=== PATIENT | female | born 1960 | race Caucasian/White ===

== ENCOUNTER 2024-07-04 11:10 | Emergency (ER) | payer OTHER, SELFPAY ==
[2024-07-04 11:15] VITALS: BP 160/84
[2024-07-04 11:51] LABS: % Basophils 0.4 % (0-2); % Eosinophils 0.6 % (0-6); % Immature Granulocytes 0.4 % (0-0.5); % Lymphocytes 8.4 % (20.5-51.1); % Monocytes 11.5 % (1.7-9.3); % Neutrophils 78.7 % (42.2-75.2); Absolute Lymphocytes 0.4 10^3/uL (1.2-3.4); Absolute Monocytes 0.6 10^3/uL (0.1-0.6); Absolute Neutrophils 3.8 10^3/uL (1.4-6.5); Hemoglobin 13.5 g/dL (12.0-16.0); Mean Corp Hgb Conc. 32.9 g/dL (33.0-37.0); Mean Corpuscular Hgb 28.1 pg (27.0-31.0); Mean Corpuscular Volume 85.4 fL (81.0-99.0); Mean Platelet Volume 8.6 fL (7.4-10.4); Nucleated Red Blood Cells % 0 %; Platelet Count 150 10^3/uL (130-400); White Blood Cell Count 4.9 10^3/uL (4.8-10.8)
[2024-07-04 12:00] LABS: COVID-19 Antigen Negative (Negative)
[2024-07-04 12:07] LABS: ALT (SGPT) 17 U/L (0-35); AST (SGOT) 22 U/L (14-36); Albumin 4.1 g/dl (3.5-5.0); Alkaline Phosphatase 66 U/L (38-126); Blood Urea Nitrogen 16 mg/dl (7-17); Calcium 8.9 mg/dl (8.4-10.2); Carbon Dioxide 28 mmol/L (22-30); Chloride 98 mmol/L (98-107); Glucose 103 mg/dl (70-99); Potassium 4.4 mmol/L (3.5-5.1); Sodium 132 mmol/L (135-145); Total Bilirubin 0.7 mg/dl (0.2-1.3); Total Protein 7.2 g/dl (6.3-8.2); eGFR > 60.00
[2024-07-04 13:20] VITALS: BP 149/92
--- NOTE | 2024-07-04 13:47 | ED.GENMED ---
History of Present Illness
General
Chief Complaint: Breathing Problem
Source: patient
Exam Limitations: none
Time Seen by Provider: 07/04/24 13:38
Nursing documentation reviewed up to this point in time: agreed with
History of Present Illness
History of Present Illness:
64-year-old female with history as noted presents to the ER for evaluation of cough. Patient reports symptoms have been ongoing for the past 2 or 3 days. She reports hacking nonproductive cough. She says she has had some mild associated shortness
of breath. She says that she has occasional pressure in her chest from coughing. She denies any fever or chills. She has not had any nausea, vomiting, diarrhea or abdominal discomfort. She denies any swelling or pain in the legs. She denies any
other complaints. She said she had similar symptoms in the past from pneumonia.
Past History
Past History
ED Past Medical History: None
ED Past Surgical History: Gynecological (Hysterectomy)
Social History
Tobacco: Non-smoker
Alcohol: None
Drug: None
Living: with family
Employment: Employed
Review of Systems
Review of Systems
All Other Systems: ROS reviewed and negative except as documented in HPI and ROS
Constitutional: Denies fever or chills
EENT: Denies sore throat or runny nose
Respiratory: Reports cough and trouble breathing
Cardiac: Reports chest pain; Denies palpitations
ABD/GI: Denies abdominal pain, nausea, vomiting or diarrhea
: Denies flank pain
Musculoskeletal: Denies edema, neck pain or back pain
Neurological: Denies headache
Phy Exam
Physical Exam
Physical Exam:
General: Awake, alert, oriented x3; no acute distress
Head: Normocephalic, atraumatic
Eyes: Conjunctiva normal, sclera anicteric
Throat: Airway intact, handling secretions, moist mucous membranes
Neck: Trachea midline, no JVD
Lungs: Frequent hacking cough with bilateral scattered wheezing at end expiration; no increased work of breathing, normal pulse ox, normal respiratory rate
Heart: Regular rate and rhythm, no murmurs, gallops, or rubs
Abd: Soft, non distended, nontender
Neuro: No gross deficits
Extremities: Trace edema in the legs which patient says is chronic; extremities are warm and well-perfused
Scores
Heart Failure Risk
Heart Failure Risk Score: Not Applicable
Heart Score for Chest Pain Patients
STEMI patient?: Not applicable
Withdrawal Assessment of Alcohol
Withdrawal Assessment Completed?: Not applicable
Course
Orders/Labs/Results
Orders:
Orders
07/04/24 11:18
Electrocardiogram (*1) Urgent
Reason for Study: Shortness of Breath
EKG- Treatment ONCE
CXR2 [CR Chest - 2 Views ] Urgent
Comment:
Reason For Exam: sob
07/04/24 11:34
COVID-19 Antigen Urgent
Source: Nasal Swab
Complete Blood Count/With Diff Urgent
Comprehensive Metabolic Panel Urgent
Influenza A+B Rapid Molecular Urgent
SAMI Source: Nasal Swab
Specimen Description:
07/04/24 13:46
Azithromycin [Zithromax] 500 mg PO NOW STA
Ipratropium/Albuterol Sulfate [Duoneb] 3 ml INH R NOW STA
Prednisone [Deltasone] 50 mg PO NOW STA
07/04/24 13:58
Troponin I Urgent
Abnormal Lab Results
07/04/24
11:34
MCHC 32.9 L g/dL
(33.0-37.0)
Absolute Lymphs (auto) 0.4 L 10^3/uL
(1.2-3.4)
Neutrophils % 78.7 H %
(42.2-75.2)
Lymphocytes % 8.4 L %
(20.5-51.1)
Monocytes % 11.5 H %
(1.7-9.3)
Sodium 132 L mmol/L
(135-145)
Glucose 103 H mg/dl
(70-99)
07/04/24 11:34
07/04/24 11:34
Vital Signs
Initial and Last Documented VS:
Initial Vital Signs
Temp Pulse Resp BP Pulse Ox
36.8 C 90 16 160/84 98
07/04/24 11:15 07/04/24 11:15 07/04/24 11:15 07/04/24 11:15 07/04/24 11:15
Last Documented Vital Signs
Temp Pulse Resp BP Pulse Ox
36.8 C 83 16 149/92 99
07/04/24 11:15 07/04/24 13:20 07/04/24 13:20 07/04/24 13:20 07/04/24 13:20
MDM/Problems Addressed
Differential Diagnosis Includes:
Bronchitis, pneumonia, URI
MDM/Problems Addressed:
64-year-old female presents to the emergency room for evaluation of hacking cough associate with some mild shortness of breath and chest pressure with coughing. Hypertensive otherwise normal vitals. Physical exam as above. She had labs sent in
triage including a CBC and a CMP which showed no clinically significant abnormalities. COVID and flu were negative. Chest x-ray reviewed by me shows no acute pneumonia. EKG shows sinus rhythm no acute ischemic changes. Will add troponin given
reported chest pressure although very low suspicion that this is cardiac chest pain suspect all related to coughing. Her clinical picture is consistent with acute bronchitis. Plan to treat with DuoNeb, steroid; cover with azithromycin in case of
occult pneumonia given similar symptoms in the past with pneumonia. Reassess after the above.
Patient's troponin is undetectable. On reassessment she feels only mild improvement with treatment here she still has some wheezing but only mild. Her work of breathing, respiratory rate and pulse ox are acceptable. I do long discussion with the
patient that she does appear stable for a trial of outpatient treatment for her acute bronchitis with steroids and albuterol. I did offer her admission if she feels uncomfortable with a trial of outpatient treatment but she is feels comfortable
trialing treatment at home to start. She will return if symptoms are getting worse. Using shared decision making we will discharge to follow-up as an outpatient.
*Radiology
Radiology exam reviewed: preliminary read by ED provider and radiology read reviewed
*Pulse Oximetry
Patient hypoxic: no
*EKG
Interpreted by ED Provider?: Yes
Heart Rate: 78
Rate: normal
Rhythm: sinus
Chambers: normal axis
Interval: normal interval
QRS Pattern: normal QRS
Ischemia: other (Cannot rule out age-indeterminate anterior infarct but unchanged from prior)
*Critical Care Note
Total Time (30-74mins, 75-104mins- exclusive of procedures): Not Applicable
Data Reviewed
Review of Other/Old Records Reveals: Labs and Records
Source: patient and records
Patient Management
Escalation/DeEscalation of care consider admission/obs:
Considered admission, using shared decision making�discharge as above
ED Attending Note
-
Portions of this chart may have been created with voice recognition software.� Occasional wrong word or��sound alike� substitutions may have occurred due to the inherent limitations of voice recognition software.
Discharge Plan
Departure
Patient Disposition: Home (Routine Discharge)
Date of Disposition: 07/04/24
Time of Disposition: 15:29
Patient with high blood pressure during this ER visit?: Yes
Discharge Problem:
Acute bronchitis
Instructions: Acute Bronchitis, Adult (DC)
Prescriptions:
New
prednisone 10 mg Tablet
See Rx Instructions .ROUTE .COMPLEX Qty: 30 0RF
Rx Instructions:
Take By Mouth:
40 mg daily x3 days, 30 mg daily x3 days,
20 mg daily x3 days, 10 mg daily x3 days.
albuterol sulfate 2.5 mg /3 mL (0.083 %) solution for nebulization
2.5 mg inhalation Q4H PRN (Reason: shortness of breath or wheezing) Qty: 75 0RF
azithromycin 250 mg tablet
250 mg PO DAILY 4 Days Qty: 4 0RF
No Action
sertraline 100 MG tablet
150 mg PO HS
famotidine 20 MG tablet
20 mg PO BID 7 Days Qty: 14 0RF
ascorbic acid (vitamin C) [Vitamin C] 500 MG tablet
1,000 mg PO BID 7 Days Qty: 28 0RF
zinc sulfate 220 MG capsule
220 mg PO DAILY 7 Days Qty: 7 0RF
melatonin 5 MG tablet
5 mg PO HS 7 Days Qty: 7 0RF
cholecalciferol (vitamin D3) 2,000 UNITS tablet
2,000 units PO DAILY 7 Days Qty: 7 0RF
aspirin [Adult Aspirin Regimen] 81 MG tablet,delayed release (DR/EC)
81 mg PO DAILY 30 Days Qty: 30 0RF
Referrals:
Meaghan Colón CRNP [Family Provider] - Follow up in 2-3 days
Activity Restrictions/Additional Instructions:
Thank you for visiting the Emergency Department at [facility].
1. Please schedule a follow up appointment as directed. Call first thing tomorrow morning to make an appointment.
2. If indicated, please take your medications as instructed and indicated on discharge paperwork.
3. If any of your symptoms do not improve, or persist, or become more severe within 6-12 hours, please return to the emergency department for further care.
4. Please return to the emergency department if you develop a headache, neck pain/stiffness, fever greater than 100.4F, chest pain, shortness of breath, persistent nausea, vomiting, slurred speech, difficulty walking, numbness/tingling, weakness,
signs of infection or any other symptoms that are worrisome to you.
Please call [phone] if you have any questions.
Interventions
Interventions:
*Risk Screen - Suicide Last Done: 07/04/24 11:15
*General Assessment Last Done: 07/04/24 13:47
*Neglect/Abuse Screening Last Done: 07/04/24 11:15
ED- Fall Risk Assessment Last Done: 07/04/24 13:47
*ED COVID-19 Vaccine History Last Done: 07/04/24 13:47
ED- Cardiac Assessment Last Done: 07/04/24 13:47
ED- Pulmonary Assessment Last Done: 07/04/24 13:47
Discharge Date and Time
Print Language: [place]ESE
[2024-07-04] MEDS: DELTASONE 50 MG PO (13:57)
[2024-07-04] MEDS: DUONEB 3 ML INH (13:57)
[2024-07-04] MEDS: ZITHROMAX 500 MG PO (13:57)
[2024-07-04 14:39] LABS: Troponin I < 0.012 ng/ml
== END 2024-07-04 16:04 | disposition home or self-care (01) ==
LOC: EMR 11:10
PROVIDERS: Emergency Medicine; EMERGENCY PHYSICIAN Emergency Medicine; REFERRING PHYSICIAN Nurse Practitioner Family
DX: J20.9 Acute bronchitis, unspecified (principal); Z11.52 Encounter for screening for COVID-19
CPT/HCPCS: 99285; 94640; 71046; 80053; 84484; 85025; 87502; 87811; 93005

== ENCOUNTER → 2025-02-11 10:11 | Outpatient (REF) | payer BC, SELFPAY | LOC: RAD 10:11 | PROVIDERS: ATTENDING PHYSICIAN Nurse Practitioner Adult Health | DX: R10.9 Unspecified abdominal pain (principal); R07.81 Pleurodynia | CPT/HCPCS: 71101 ==